=== PATIENT | female | born 1935 | race Caucasian/White ===

== ENCOUNTER 2020-06-09 21:18 | Emergency (ER) | payer MEDICARE ==
[~2020-06-09] VITALS: Ht 160 cm; Wt 69.6 kg
[~2020-06-09 21:18] MED LIST: ASPI-482 PO; ASPI325T11 PO; ATOR10TA60 PO; CHOL100013 PO; DILT120C99 PO; FLEC50TA PO; LEVO88TA4 PO
--- NOTE | 2020-06-09 22:35 | RAD ---
TIBIA FIBULA LEFT History: Reason: fall / Spl. Instructions: / History: Pain Technique: 2 views left tibia and fibula Comparison: None. Findings: Normal alignment. No fracture. Dystrophic calcifications within the anterior lower leg soft tissues. Mild degenerative changes of the knee. Impression: 1. No acute osseous abnormality. Electronically signed by: Victor M Ye DO (06/09/2020 10:32 PM) [facility]
--- NOTE | 2020-06-09 22:56 | RAD ---
CT HEAD AND CERVICAL SPINE WO, CT MAXILLOFACIAL WO CONTRAST History: Reason: pain / Spl. Instructions: / History: Comparison: None. Technique: Noncontrast CT imaging was performed of the head, maxillofacial and cervical spine. Coronal and sagittal reconstructions were performed. Exposure: One or more of the following individualized dose reduction techniques were utilized for this examination: 1. Automated exposure control 2. Adjustment of the mA and/or kV according to patient size 3. Use of iterative reconstruction technique. Findings: Head CT: No intracranial hemorrhage. No mass effect. No hydrocephalus. Left anterior scalp and supraorbital soft tissue swelling and hematoma with subcutaneous gas. Moderate brain parenchymal volume loss. Mild foci of decreased attenuation within hemispheric white matter, most often due to chronic microvascular ischemia. Maxillofacial CT: No acute maxillofacial fracture. Orbits are unremarkable. Bilateral maxillary sinus polypoid mucosal thickening, right greater than left. Mastoid air cells are clear. There is dentition with multifocal periodontal disease. Right first molar periapical lucency extending to the right maxillary sinus. No acute calvarial fracture. Cervical spine CT: Grade 1 anterolisthesis C3 on C4 and C4 on C5 as well as C7 on T1. Normal vertebral body height. No fracture. Moderate multilevel degenerative disc changes most prominent C5-C6 and C6-C7. Facet arthropathy. C2-C3 facet joint fusion. Multilevel neuroforaminal narrowing. No high-grade canal stenosis. Advanced left C1-C2 arthropathy. Soft tissues are unremarkable. Impression: Head CT: 1. No acute intracranial abnormality. 2. Left supraorbital/frontal scalp soft tissue injury with hematoma. Maxillofacial CT: 1. No acute maxillofacial fracture. 2. Paranasal sinus disease with potential right maxillary odontogenic sinus disease Cervical spine CT: 1. No acute fracture or subluxation of the cervical spine. 2. Moderate multilevel cervical spondylosis. Electronically signed by: Victor M Ye DO (06/09/2020 10:53 PM) [facility]
[2020-06-10] MEDS ORDERED: DIPH,PERTUSS(ACELL),TET VAC/PF 0.5 ML SYRINGE. VAX IM ONE (01:15)
--- NOTE | 2020-06-10 01:15 | PHYS DOC ---
Past Medical History Past Medical History: No Pertinent History, Hypertension Past Surgical History: Other Additional Past Surgical Histo: OVARIAN CYST, HEART CATH Smoking Status: Never Smoker Alcohol Use: None Drug Use: None General Adult EDM: Chief Complaint: MECHANICAL FALL HPI: HPI: Patient is an 84-year-old female presents the emergency room after falling. Patient tripped over a box falling straight on her face. She has a small cut on her forehead. She did not lose consciousness. She was ambulatory after the event. She states she does not want to come in but her grandchildren were concerned. She has no complaints at this time. Unknown last tetanus shot Review of Systems: Review of Systems: General: Denies fever, chills, sweats, fatigue Eyes: Denies drainage, blurred vision, eye redness HENT: Denies rhinorrhea, sore throat, earache Respiratory: Denies cough, shortness of breath, wheezing Cardiac: Denies edema, palpitations, chest pain GI: Denies abdominal pain, Nausea, vomiting MSK: Denies back pain, neck pain Skin: Denies rash, jaundice Neuro: Denies headache, dizziness Psychiatric: Denies SI/HI Heart Score: Risk Factors: Risk Factors: DM, Current or recent (<one month) smoker, HTN, HLP, family history of CAD, obesity. Risk Scores: Score 0 - 3: 2.5% MACE over next 6 weeks - Discharge Home Score 4 - 6: 20.3% MACE over next 6 weeks - Admit for Clinical Observation Score 7 - 10: 72.7% MACE over next 6 weeks - Early Invasive Strategies Allergies: Allergies: Allergies Coded Allergies Type Severity Reaction Last Updated Verified Sulfa (Sulfonamide Antibiotics) Allergy Severe Swelling 09/15/17 No meloxicam Adverse Reaction Intermediate 09/16/17 Yes Physical Exam: PE: General: Awake, alert, NAD. Well Nourished, well hydrated. Cooperative HEENT: Bruising to left upper and lower eyelid, 2 cm laceration to left forehead, EOMI, PERRL, airway patent, moist oral mucosa, no nasal septal hematoma, no facial crepitus or deformity Neck: Supple, trachea midline, no C-spine tenderness Respiratory: CTA bilaterally, normal effort, no wheezing/crackles, no crepitus CV: RRR, no murmur, cap refill <2, 2+ bilateral radial/DP pulses GI: Soft, nondistended, nontender, no masses MSK: No obvious deformities, pelvis stable and nontender Skin: Warm, dry, left bianchi bruising Neuro: A&O x3, speech NL, sensory and motor grossly intact, no focal deficits Psych: Normal affect, normal mood, not suicidal or homicidal EKG: EKG: [] Radiology/Procedures: Radiology/Procedures: [] Course & Med Decision Making: Course & Med Decision Making Pertinent Labs and Imaging studies reviewed. (See chart for details) Patient is a 84yo elderly female who presents to the ED after a mechanical fall from standing. On exam, patient has bruising to the face. Due to patient's age and head trauma they cannot be ruled out with faroese CT head rule and will need a CT head to evaluate for intracranial bleed and a CT cervical spine. . Pat ient did not have any symptoms concerning for a presyncopal episode. They deny chest pain, palpitations, dizziness, headache, shortness of breath, recent bleeding, numbness/weakness in extremities or face. They do not need a syncope work up at this time. Laceration was repaired with Dermabond without difficulty. Tetanus was updated. CT is negative. Patient's test results and vitals while in the ED were fully reviewed and discussed with the patient. Patient is stable and at this time does not need admission to the hospital. We have discussed strict return precautions and the importance of following up with their Primary Care Physician. Patient stated understanding and was given an opportunity to ask any questions. Patient is in agreement with plan. Dragon Disclaimer: Laureano Disclaimer: This electronic medical record was generated, in whole or in part, using a voice recognition dictation system. Departure Departure Impression: Primary Impression: Fall Additional Impression: Closed head injury Disposition: HOME, SELF-CARE Condition: STABLE Referrals: ANKITA PHILLIPS MD (PCP) Patient Instructions: Head Injury, Adult Justicifation of Admission Dx: Justifications for Admission: Justification of Admission Dx: N/A JASS MANDEL MD Jun 10, 2020 01:15
[2020-06-10 01:37] VITALS: BP 126/59
--- NOTE | 2020-06-12 09:28 | EKG ---
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
== END 2020-06-10 01:42 | disposition home or self-care (01) ==
LOC: ER 21:18
DX: S01.81XA Laceration without foreign body of other part of head, initial encounter (principal); S80.12XA Contusion of left lower leg, initial encounter; Z88.2 Allergy status to sulfonamides; I10 Essential (primary) hypertension; Z88.8 Allergy status to other drugs, medicaments and biological substances; W18.09XA Striking against other object with subsequent fall, initial encounter; Y93.89 Activity, other specified; Y92.89 Other specified places as the place of occurrence of the external cause; Y99.8 Other external cause status
CPT/HCPCS: 12011; 70450; 70486; 72125; 73590; 90471; 90715; 93005; 99285